=== PATIENT | male | born 1945 | race Caucasian/White ===

== ENCOUNTER 2022-04-14 09:25 | Inpatient (IN) | payer OTHER, MEDICARE ==
[2022-04-14 10:29] LABS: INR 1.17 (0.83-1.09); PROTHROMBIN TIME (PATIENT) 13.5 SEC (9.7-13.0)
[2022-04-14 10:31] LABS: ACTIVATED PTT 24.5 SECONDS (25.2-36.5)
[2022-04-14 10:32] LABS: HEMATOCRIT 38.5 % (35.4-49); HEMOGLOBIN 14.2 G/dL (11.7-16.9); MCH 35.5 pg (25.7-33.7); MCHC 36.8 g/dl (32.0-35.9); MEAN CELL VOLUME 96.4 fl (80-96); MEAN PLT VOLUME 6.4 fl (7.5-11.1); PLATELET COUNT 210.9 10^3/uL (134-434); RBC 3.99 10^6/uL (4.00-5.60); RDW 13.1 % (11.9-15.9); WHITE BLOOD COUNT 9.5 10^3/uL (4.0-10.8)
[2022-04-14 10:38] LABS: ALBUMIN 3.9 g/dl (3.4-5.0); BILIRUBIN,TOTAL 0.7 mg/dl (0.2-1); CALCIUM 9.2 mg/dl (8.5-10); CREATININE 0.9 mg/dl (0.55-1.3); TOT PROT 6.4 g/dl (6.4-8.2)
[2022-04-14 10:49] LABS: PLATELET ESTIMATE ADEQUATE
[2022-04-14] MEDS ORDERED: ASPIRIN 81 MG CHEWABLE TABLETS PO ONE (11:16)
[2022-04-14] MEDS ORDERED: ASPIRIN 81 MG CHEWABLE TABLETS ONE (11:25)
[2022-04-14] MEDS ORDERED: CEFTRIAXONE 1 GM in DEXTROSE 5%-WATER - 50 ML IVPB SCH (14:45)
[2022-04-14 16:02] VITALS: BMI 25.3
[2022-04-14] MEDS ORDERED: ATORVASTATIN CA 10 MG TABLET (FP) PO SCH (22:00)
[2022-04-14] MEDS ORDERED: carBAMazepine 200 MG/10 ML UNIT-DOSE CUP PO SCH (22:00)
[2022-04-14] MEDS ORDERED: GABAPENTIN 100 MG CAPSULE PO SCH (22:00)
[2022-04-14] MEDS ORDERED: carBAMazepine 100 MG TAB.CHEW PO SCH (22:00)
[2022-04-14] MEDS ORDERED: MELATONIN 5 MG TABLETS PO SCH (22:00)
[2022-04-14] MEDS ORDERED: LORazepam 1 MG TABLET PO SCH (22:00)
[2022-04-14] MEDS ORDERED: SODIUM CHLORIDE 1,000 ML IV SCH (23:15)
[2022-04-15 06:37] VITALS: TEMP 98.3
[2022-04-15] MEDS ORDERED: TAMSULOSIN HCL 0.4 MG CAP PO SCH (08:30)
[2022-04-15 08:42] LABS: ALBUMIN 3.5 g/dl (3.4-5.0); BILIRUBIN,TOTAL 0.6 mg/dl (0.2-1); CALCIUM 8.8 mg/dl (8.5-10); CREATININE 0.9 mg/dl (0.55-1.3); TOT PROT 6.1 g/dl (6.4-8.2)
[2022-04-15 09:03] VITALS: BP 119/63; PULSE 47; RESP 18
[2022-04-15] MEDS ORDERED: LISINOPRIL 10 MG TABLET PO SCH (10:00)
[2022-04-15] MEDS ORDERED: amLODIPine BESYLATE 5 MG TABLET (FP) PO SCH (10:00)
[2022-04-15 11:47] LABS: BASO % 0.7 % (0-2.0); EOS % 8.9 % (0-4.5); HEMATOCRIT 38.3 % (35.4-49); HEMOGLOBIN 13.2 GM/dL (11.7-16.9); LYMPH % 8.7 % (8-40); MCH 33.2 pg (25.7-33.7); MCHC 34.3 g/dl (32.0-35.9); MEAN CELL VOLUME 96.7 fl (80-96); MEAN PLT VOLUME 6.8 fl (7.5-11.1); MONO % 16.1 % (3.8-10.2); NEUT % 65.6 % (42.8-82.8); PLATELET COUNT 237 10^3/uL (134-434); RBC 3.96 M/mm3 (4.00-5.60); WHITE BLOOD COUNT 6.2 K/mm3 (4.0-10.0)
== END 2022-04-15 12:04 | disposition left against medical advice (07) | DRG 641 ==
LOC: FER 09:25 → FM/S 14:44
DX: E87.1 Hypo-osmolality and hyponatremia (principal); N39.0 Urinary tract infection, site not specified; I10 Essential (primary) hypertension; E78.5 Hyperlipidemia, unspecified; G47.00 Insomnia, unspecified; M54.16 Radiculopathy, lumbar region; F41.8 Other specified anxiety disorders
CPT/HCPCS: 0241U-QW; 36415; 70450-TC; 71045-TC-FY; 80053; 80061; 81003; 82436; 82550; 82553; 83930; 83935; 84133; 84300; 84439; 84443; 84484; 85025; 85610; 85730; 86850; 86900; 86901; 87086; 93005; 93306-TC; 93880-TC; 99285-25

== ENCOUNTER 2023-05-19 12:21 | Observation (INO) | payer OTHER, MEDICARE ==
[2023-05-19] MEDS ORDERED: ACETAMINOPHEN 1000 MG/100 ML BAG IVPB ONE (12:52)
[2023-05-19] MEDS ORDERED: SODIUM CHLORIDE 0.9% 1000 ML INFUS.BAG IV ONE ×2 (12:52→14:56)
[2023-05-19] MEDS ORDERED: MAGNESIUM HYDROX 2400MG/30ML ORAL SUSPENSION 30 ML CUP PO ONE (12:52)
[2023-05-19] MEDS ORDERED: ACETAMINOPHEN INJECTION 100 ML IVPB ONE (13:26)
[2023-05-19] MEDS ORDERED: MAGNESIUM HYDROX 2400MG/30ML ORAL SUSPENSION 30 ML CUP ONE (13:26)
[2023-05-19 13:45] LABS: CREATININE 0.7 mg/dl (0.6-1.3); POTASSIUM 4.2 mmol/L (3.5-5.1); TOT PROT 6.1 g/dl (6.4-8.2)
[2023-05-19 13:46] LABS: HEMATOCRIT 37.4 % (35.4-49); HEMOGLOBIN 12.8 G/dL (11.7-16.9); MCH 33.2 pg (25.7-33.7); MCHC 34.2 g/dl (32.0-35.9); MEAN CELL VOLUME 97.2 fl (80-96); MEAN PLT VOLUME 7.4 fl (7.5-11.1); PLATELET COUNT 185.4 10^3/uL (134-434); RBC 3.85 10^6/uL (4.00-5.60); RDW 13.2 % (11.9-15.9); WHITE BLOOD COUNT 11.7 10^3/uL (4.0-10.8)
[2023-05-19 14:12] LABS: PLATELET ESTIMATE ADEQUATE
[2023-05-19] MEDS ORDERED: MAGNESIUM CITRATE 300 ML BOTTLE PO ONE (15:36)
[2023-05-19] MEDS ORDERED: SODIUM CHLORIDE 1,000 ML IV SCH (16:15)
[2023-05-19] MEDS ORDERED: MAGNESIUM CITRATE 300 ML BOTTLE ONE (17:41)
[2023-05-19 18:45] VITALS: BMI 26.1
[2023-05-19] MEDS ORDERED: carBAMazepine 100 MG/5 ML UNIT-DOSE CUP PO SCH (22:00)
[2023-05-19] MEDS ORDERED: PATIENT'S OWN MEDICATION (NON-FORMULARY) (Tadalafil [Tadalafil] 5 MG Tablet) PO SCH (22:00)
[2023-05-19] MEDS ORDERED: LORazepam 1 MG TABLET PO ONE (23:54)
[2023-05-20] MEDS: MELATONIN 5 MG TABLETS PO SCH ×2 (00:06→23:06)
[2023-05-20] MEDS: LISINOPRIL 10 MG TABLET PO SCH ×2 (00:06→23:06)
[2023-05-20] MEDS ORDERED: ACETAMINOPHEN 1000 MG/100 ML BAG IVPB ONE (06:12)
[2023-05-20] MEDS ORDERED: OXYMETAZOLINE 0.05% NASAL SOLUTION 15 ML BOTTLE NS PRN (06:12)
[2023-05-20 08:18] LABS: HEMATOCRIT 35.5 % (35.4-49); HEMOGLOBIN 11.8 G/dL (11.7-16.9); MCH 32.1 pg (25.7-33.7); MCHC 33.2 g/dl (32.0-35.9); MEAN CELL VOLUME 96.4 fl (80-96); MEAN PLT VOLUME 7.6 fl (7.5-11.1); PLATELET COUNT 195.6 10^3/uL (134-434); RBC 3.68 10^6/uL (4.00-5.60); RDW 13.7 % (11.9-15.9); WHITE BLOOD COUNT 9.5 10^3/uL (4.0-10.8)
[2023-05-20] MEDS: TAMSULOSIN HCL 0.4 MG CAP PO SCH (09:09)
[2023-05-20 09:13] LABS: CALCIUM 8.3 mg/dl (8.5-10.1); CREATININE 0.6 mg/dl (0.6-1.3); POTASSIUM 3.8 mmol/L (3.5-5.1)
[2023-05-20] MEDS ORDERED: amLODIPine BESYLATE 5 MG TABLET (FP) PO SCH (10:00)
[2023-05-20] MEDS ORDERED: LISINOPRIL 10 MG TABLET PO SCH (10:00)
[2023-05-20] MEDS: POLYETHYLENE GLYCOL (HEALTHYLAX) 3350 17 GM PACKET PO SCH ×3 (10:44→23:05)
[2023-05-20] MEDS ORDERED: MAGNESIUM CITRATE 300 ML BOTTLE PO ONE (10:45)
[2023-05-20] MEDS ORDERED: MINERAL OIL ENEMA 133 ML ENEMA RC ONE (10:52)
[2023-05-20] MEDS ORDERED: SIMETHICONE 80 MG TAB.CHEW (FP) PO PRN (10:53)
[2023-05-20] MEDS: PANTOPRAZOLE 40 MG TABLET PO SCH (11:50)
[2023-05-20] MEDS ORDERED: ACETAMINOPHEN 1000 MG/100 ML BAG IVPB PRN (12:33)
[2023-05-20] MEDS ORDERED: METHYLNALTREXONE BROMIDE 8 MG/0.4 ML SYRINGE SQ ONE (18:07)
[2023-05-20] MEDS: ATORVASTATIN CA 10 MG TABLET (FP) PO SCH ×2 (23:06)
[2023-05-21] MEDS: POLYETHYLENE GLYCOL (HEALTHYLAX) 3350 17 GM PACKET PO SCH (05:47)
[2023-05-21] MEDS: TAMSULOSIN HCL 0.4 MG CAP PO SCH (08:00)
[2023-05-21 08:59] LABS: ALBUMIN 3.9 g/dl (3.4-5.0); BILIRUBIN,TOTAL 1.1 mg/dl (0.2-1); CALCIUM 8.9 mg/dl (8.5-10.1); CREATININE 0.6 mg/dl (0.6-1.3); POTASSIUM 3.8 mmol/L (3.5-5.1)
[2023-05-21 09:01] VITALS: PULSE 78
[2023-05-21] MEDS: PANTOPRAZOLE 40 MG TABLET PO SCH (09:16)
[2023-05-21] MEDS: METOCLOPRAMIDE HCL 10 MG TABLET (FP) PO SCH ×2 (09:16→11:31)
[2023-05-21] MEDS ORDERED: METHYLNALTREXONE BROMIDE 8 MG/0.4 ML SYRINGE SQ ONE (10:03)
[2023-05-21 10:14] LABS: HEMATOCRIT 35.2 % (35.4-49); HEMOGLOBIN 12.3 GM/dL (11.7-16.9); MCHC 34.8 g/dl (32.0-35.9); MEAN CELL VOLUME 94.9 fl (80-96); PLATELET COUNT 254 10^3/uL (134-434); RBC 3.71 M/mm3 (4.00-5.60); RDW 12.5 % (11.9-15.9); WHITE BLOOD COUNT 9.9 K/mm3 (4.0-10.0)
[2023-05-21 13:24] VITALS: BP 135/65; RESP 14; TEMP 98.4
[2023-05-21] MEDS ORDERED: GABAPENTIN 100 MG CAPSULE PO SCH (22:00)
[2023-05-21] MEDS ORDERED: GABAPENTIN 400 MG CAPSULE PO SCH (22:00)
== END 2023-05-21 14:43 | disposition home or self-care (01) ==
LOC: FER 12:21 → FM/S 15:51
PROVIDERS: ADMIT Internal Medicine
PROC: 3E033NZ Introduction of Analgesics, Hypnotics, Sedatives into Peripheral Vein, Percutaneous Approach (ICD-10-PCS; principal; 2023-05-19)
PROC: 3E023GC Introduction of Other Therapeutic Substance into Muscle, Percutaneous Approach (ICD-10-PCS; 2023-05-19)
PROC: 3E0337Z Introduction of Electrolytic and Water Balance Substance into Peripheral Vein, Percutaneous Approach (ICD-10-PCS; 2023-05-19)
DX: K59.03 Drug induced constipation (principal); K56.7 Ileus, unspecified; E86.0 Dehydration; I10 Essential (primary) hypertension; E78.5 Hyperlipidemia, unspecified; G62.9 Polyneuropathy, unspecified; N40.0 Benign prostatic hyperplasia without lower urinary tract symptoms; G47.00 Insomnia, unspecified; F32.A Depression, unspecified
CPT/HCPCS: 36415; 74177-TC; 80048; 80053; 81003; 85025; 85027; 96361; 96372; 96374; 96376; 99285-25; G0378; Q9967